=== PATIENT | female | born 1950 | race Caucasian/White ===

== ENCOUNTER 2019-08-29 09:45 | Inpatient (IN) | payer OTHER ==
[~2019-08-29] VITALS: Ht 152.4 cm; Wt 72.1 kg
[2019-08-29 09:48] VITALS: BP 112/68
[2019-08-29] MEDS ORDERED: UNICOMPLEX M TA1 TA1 PO (10:24)
[2019-08-29] MEDS ORDERED: VITAMIN D32000 UNIT PO (10:24)
[2019-08-29 10:48] LABS: ABSOLUTE NEUTROPHILS 3.8 thou/uL (1.4-8.2); BASOPHILS 1.1 % (0.0-2.0); EOSINOPHILS 1.2 % (0.0-3.0); HEMOGLOBIN 11.9 gm/dL (12.0-15.0); LYMPHOCYTES 32.4 % (24.0-44.0); MCH 27.4 pg (26.0-34.0); MCHC 33.1 g/dL (28.0-37.0); MCV 82.7 fL (80.0-100.0); MONOCYTES 7.4 % (1.0-8.0); PLATELET COUNT 321 thou/uL (150-400); POLYS 57.9 % (36.0-66.0); RBC 4.36 mil/uL (4.20-5.00); RDW 13.8 % (10.5-14.5); WBC 6.6 thou/uL (4.0-11.0)
[2019-08-29 10:54] LABS: CALCIUM 10.1 mg/dL (8.5-10.1); CREATININE 0.8 mg/dL (0.6-1.0)
[2019-08-29 11:13] VITALS: BP 112/68
[2019-08-29 13:15] VITALS: BP 132/78
[2019-08-29 15:17] VITALS: BP 145/65
--- NOTE | 2019-08-29 19:54 | NUR ---
[age] OLD FEMALE ADMITTED TO WEST ROOM 459 UNDER THE CARE OF DR BOYD. PT WAS BROUGHT IMTO THE ER PER FAMILY AFTER C/O THREE BLOODY STOOLS. PT IS ALERT AND ORIENTED TIMES FOUR. VSS, IVF INFUSING PER ORDER. PT DENIES PAIN/SOA. PT UP TO RESTROOM WITH STANDBY ASSIST. PT HAD EGD DONE TODAY, AND WILL HAVE COLONOSCOPY IN IN THE MORNING. PT FAMILY AT BEDSIDE. WILL CONTINUE TO MONITOR.
[2019-08-29 19:58] VITALS: BP 169/92
[2019-08-30 05:18] LABS: CALCIUM 8.5 mg/dL (8.5-10.1); CREATININE 0.5 mg/dL (0.6-1.0); MAGNESIUM 1.8 mg/dL (1.8-2.4); POTASSIUM 3.7 mmol/L (3.5-5.1)
[2019-08-30 05:26] LABS: EOSINOPHILS 1.9 % (0.0-3.0); HEMATOCRIT 29.3 % (37.0-47.0); LYMPHOCYTES 37.6 % (24.0-44.0); MCHC 33.2 g/dL (28.0-37.0); MCV 84.4 fL (80.0-100.0); MONOCYTES 6.1 % (1.0-8.0); POLYS 53.4 % (36.0-66.0); RBC 3.47 mil/uL (4.20-5.00); RDW 13.6 % (10.5-14.5); WBC 5.7 thou/uL (4.0-11.0)
[2019-08-30 06:02] LABS: HEMOGLOBIN 9.7 gm/dL (12.0-15.0); PLATELET COUNT 215 thou/uL (150-400)
--- NOTE | 2019-08-30 06:28 | NUR ---
Assumed pt care @191. pt a&ox4. ambulates with standby assist. pt had 6 bloody liquid stools after finishx the colosnocopy prep. no concerns overnight. daughter at bedside. pt looking forward to her procedure today. consents signed. no s/s of distress. will cont to monitor pt stated that she didn't get back her drivers licence after registering yesterday at the ER. admitting was called but they couldn't find it and said they will let the day shift marketing systems manager to investigate. pt notified
[2019-08-30 07:52] VITALS: BP 148/67
--- NOTE | 2019-08-30 08:47 | EKG ---
[place] [address] [facility] [place] [address] ELECTROCARDIOGRAM REPORT Name: LANCE ANJERMAIN Bland Room #: 459-P ADM IN M.R.#: [id number] Admission: 08/29/19 Attend Phys: Gil Dubois MD Discharge: Date of : 50 Report #: [id number] THIS REPORT FOR: //name// [facility] Test Date: 2019-08-29 Test Time: 15:09:54 Pat Name: [place] NA Department: Room: 459 Gender: F Yard Coupler: DORETHA : 1950 Requested By: Cisco Robertson Order Number: [id number] MD: Ashvin Swenson Measurements Intervals Roland Rate: 77 P: -20 TN: 152 QRS: 14 QRSD: 95 T: 227 QT: 345 QTc: 391 Interpretive Statements Sinus rhythm Nonspecific ST and T wave abnormality No previous ECG available for comparison Electronically Signed On 08-30-2019 8:46:44 BIOMEDICAL SPECIALIST by Ashvin Swenson [email or web address] <ELECTRONICALLY SIGNED> By: Ashvin Swenson MD, [facility] 08/30/19 0846 [id number] Ashvin Swenson MD, FACC /EPI
--- NOTE | 2019-08-30 13:45 | NUR ---
PT ADMITTED RELATED TO GI BLEED. CM REVIEWED CHART AND SPOKE WITH CARE TEAM. CM MET WITH PT, SPOUSE, AND DTR AT BEDSIDE THIS DAY. PT IS A&O X4. PT INDICATED SHE LIVES IN A HOUSE WITH HER SPOUSE WITH 3 STEPS TO ENTER AND NO STEPS INSIDE. PT INDICATED SHE HAS ALL NEEDS ON 1 LEVEL UPON DC. PT INDICATED SHE HAD BEEN USING A CRUTCH TO ASSIST WITH MOBILITY VARNISH INSPECTOR DUE TO KNEE PAIN. PT INDICATED NO OTHER DME, HH, OP THERAPY, OR POST ACUTE REHAB STAYS. PT INDICATED SHE PLANS TO RETURN HOME ONCE MEDICALLY STABLE. PT TO HAVE EGDAND COLONOSCOPY TODAY. CM TO FOLLOW INDICATED WITH DC PLANNING.
[2019-08-30 15:35] VITALS: BP 143/73
[2019-08-30 19:05] VITALS: BP 145/59
--- NOTE | 2019-08-30 19:58 | NUR ---
Assumed pt care this am, kept NPO was taken down for the EGD and colonoscopy this pm. VS have been stable. No nausea or vomiting have been noted. FAmily at the bedside, diet is to be advanced as tolerated. Did good on clears now on a soft diet. No signs or bleeding have been noted, pt being monitored. POC followed. No signs or verbalizations of distress. Endorsed to the night nurse.
--- NOTE | 2019-08-31 03:31 | NUR ---
Pt. rested quietly at short intervals during the night when checked on during frequent rounds. No c/o nausea and has been passing gas. No active bleeding during the shift. Spouse at the bedside all night.
[2019-08-31 06:09] LABS: HEMATOCRIT 27.5 % (37.0-47.0); HEMOGLOBIN 9.2 gm/dL (12.0-15.0); MCH 27.8 pg (26.0-34.0); MCHC 33.5 g/dL (28.0-37.0); MCV 83.1 fL (80.0-100.0); RBC 3.31 mil/uL (4.20-5.00); RDW 13.6 % (10.5-14.5); WBC 5.3 thou/uL (4.0-11.0)
[2019-08-31 07:10] VITALS: BP 156/76; BP 161/73
[2019-08-31 10:22] VITALS: BP 156/76
--- NOTE | 2019-08-31 12:03 | NUR ---
Assumed pt care this am, VS stable. Medications and diet are well tolerated no nausea or vomiting noted no bleeding as well. Pt refused all other medication this am and was determined to go home today. at the bed side. Seen by , poc followed no signs or verbalizations of distress have been noted. DC instructions given to the pt, IV removed. Pt and was picked up by the son, now dc.
--- NOTE | 2019-08-31 13:10 | NUR ---
CARE TEAM INDICATED THAT PT IS MEDICALLY STABLE TO DC HOME THIS DAY. PT IS TO DC HOME WITH NO NEEDS. PT'S FAMILY TO TRANSPORT HOME. NO OTHER CM INTERVENTION INDICATED. CASE CLOSED.
--- NOTE | 2019-08-31 18:06 | PATH ---
[facility] [place] [address] [address] PATHOLOGY RPT PROCEDURE Name: LANCE NOLASCOJERMAIN Bland Room #: 459-P DIS IN M.R.#: [id number] Admission: 08/29/19 Date of : 50 Discharge: 08/31/19 Report #: [id number] Path Case #: [id number] [facility] Accession Number: [id number] . 01 Material submitted: . stomach - RANDOM GASTRIC BIOPSY RO R/O H. PYLORI . 01 Clinical history: . Acute GI bleed Gastric erosions Rule out H. pylori . 02 Diagnosis: Gastric mucosa, gastric R/O H. pylori, endoscopic biopsy: - Mild reactive gastropathy. - Negative for intestinal metaplasia or atrophy. - Negative for Helicobacter pylori (properly controlled immunohistochemical stain performed). . (IUV:christian; 08/31/2019) QMS 08/31/2019 1158 Local . 02 Electronically signed: . Myra Tamez MD, Pathologist NPI- [id number] . 01 Gross description: . The specimen is received in formalin, labeled "Lidia Nolasco, random gastric BX" and consists of multiple fragments of pink-eden tissue measuring 1.4 x 0.7 x 0.3 cm in aggregate which are entirely submitted in A1. (SDY; 08/30/2019) SYU/SYU 08/30/2019 1510 Local . 02 Pathologist provided ICD-10: K31.9 . 02 CPT . 264600, X88063 Specimen Comment: A courtesy copy of this report has been sent to [phone] Specimen Comment: [phone] Specimen Comment: Report sent to / DR BOYD Performed at: 01 [facility] [address] [facility] [address], [place] [id number] MD Yehuda Crowe MD Phone: [phone] [facility] [place] [place] [address] [place] [address] PATHOLOGY RPT PROCEDURE Name: LIDIA NOLASCO Room #: 459-P DIS IN M.R.#: [id number] Admission: 08/29/19 Date of : 50 Discharge: 08/31/19 Report #: [id number] Path Case #: [id number] Performed at: 02 [facility] [address] [place], [place] [id number] MD Myra Tamez MD Phone: [phone]
--- NOTE | 2019-09-03 19:07 | PATH ---
[facility] [address] [place] [address] PATHOLOGY RPT PROCEDURE Name: LIDIA NOLASCO Room #: 459-P [facility] IN M.R.#: [id number] Admission: 08/29/19 Date of : 50 Discharge: 08/31/19 Report #: [id number] Path Case #: [id number] [facility] Accession Number: [id number] . 01 Material submitted: . colon - POLYP AT SIGMOID COLON. Modifiers: sigmoid . 01 Clinical history: . Hematochezia . 02 Diagnosis: Polyp, at sigmoid colon, endoscopic biopsy: - Tubular adenoma. - Negative for high-grade dysplasia. . (IUV:christian; 09/03/2019) QMS 09/03/2019 1346 Local . 02 Electronically signed: . Myra Tamez MD, Pathologist NPI- [id number] . 01 Gross description: . The specimen is received in formalin, labeled "Lidia Nolasco, polyp at sigmoid colon" and consists of 2 fragments of pink-eden tissue measuring 0.3 x 0.3 cm each which are entirely submitted in A1. (SDY; 08/31/2019) SYU/SYU 08/31/2019 1546 Local . 02 Pathologist provided ICD-10: D12.5 . 02 CPT . 522643 Specimen Comment: A courtesy copy of this report has been sent to [phone] Specimen Comment: [phone], Specimen Comment: Report sent to ,DR NARVAEZ / DR BOYD Performed at: [address] [facility], [place] [id number] MD Yehuda Crowe MD Phone: [phone] Performed at: [address], [place] [id number] MD Myra Tamez MD Phone: [phone]
== END 2019-08-31 12:08 | disposition home or self-care (01) | DRG 378 ==
LOC: ER 09:45 → 4W 13:20
PROVIDERS: Emergency Medicine; Nurse Practitioner; ADMIT Hospitalist
PROC: 0DB68ZX Excision of Stomach, Via Natural or Artificial Opening Endoscopic, Diagnostic (ICD-10-PCS; principal; 2019-08-29)
PROC: 0DBN8ZX Excision of Sigmoid Colon, Via Natural or Artificial Opening Endoscopic, Diagnostic (ICD-10-PCS; 2019-08-30)
DX: K57.31 Diverticulosis of large intestine without perforation or abscess with bleeding (principal); D62 Acute posthemorrhagic anemia; K25.4 Chronic or unspecified gastric ulcer with hemorrhage; K29.81 Duodenitis with bleeding; G89.29 Other chronic pain; M19.90 Unspecified osteoarthritis, unspecified site; I10 Essential (primary) hypertension; K63.5 Polyp of colon; Z79.899 Other long term (current) drug therapy; Z79.1 Long term (current) use of non-steroidal anti-inflammatories (NSAID)
CPT/HCPCS: 10040; 62110; 62900; 70005